=== PATIENT | male | born 1990 | race African-American/Black ===

== ENCOUNTER 2016-09-17 21:47 | Emergency (ER) | payer SELFPAY ==
[~2016-09-17 21:47] MED LIST: EPINEPHrine/PF 1 MG/1 ML (1:1,000) AMPULE IVPUSH ONE
[2016-09-17] MEDS ORDERED: EPINEPHrine/PF 1 MG/1 ML (1:1,000) AMPULE IVPUSH ONE ×4 (21:56→22:06)
[2016-09-17] MEDS ORDERED: SODIUM CHLORIDE 1,000 ML IV STA (21:57)
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
[2016-09-17 23:29] VITALS: BP 000/00; PULSE 0; TEMP 0; BMI 23.3
[2016-09-18] MEDS ORDERED: EPINEPHrine/PF 1 MG/1 ML (1:1,000) AMPULE IVPUSH ONE (22:03)
== END 2016-09-18 03:00 | disposition expired ==
LOC: SUPCPDRO 21:47 → JER 21:47
PROC: 0BH17EZ Insertion of Endotracheal Airway into Trachea, Via Natural or Artificial Opening (ICD-10-PCS; principal; 2016-09-17)
PROC: 5A12012 Performance of Cardiac Output, Single, Manual (ICD-10-PCS; 2016-09-17)
PROC: 0W9930Z Drainage of Right Pleural Cavity with Drainage Device, Percutaneous Approach (ICD-10-PCS; 2016-09-17)
PROC: 3E033GC Introduction of Other Therapeutic Substance into Peripheral Vein, Percutaneous Approach (ICD-10-PCS; 2016-09-17)
DX: S01.80XA Unspecified open wound of other part of head, initial encounter (principal); S41.001A Unspecified open wound of right shoulder, initial encounter; X95.9XXA Assault by unspecified firearm discharge, initial encounter; Y93.9 Activity, unspecified; Y92.89 Other specified places as the place of occurrence of the external cause; I46.8 Cardiac arrest due to other underlying condition
CPT/HCPCS: 71010-TC; 99285-25; P9058